=== PATIENT | male | born 1980 | race Caucasian/White ===

== ENCOUNTER 2017-02-10 14:48 | Emergency (ER) | payer BC ==
[2017-02-10 14:55] VITALS: BP 137/96
--- NOTE | 2017-02-10 15:25 | UC ---
Abdominal Pain Male HPI - HPI Summary HPI Summary: c/o worsen abd pain over the past three days/ chills and subjective fever - History of Current Complaint Chief Complaint: UCGeneralIllness Stated Complaint: DIZZY,NAUSEOUS Time Seen by Provider: 02/10/17 15:11 Hx Obtained From: Patient Onset/Duration: Sudden Onset, Lasting Days - 3 Timing: Constant Severity Initially: Mild Severity Currently: Moderate Pain Intensity: 6 Pain Scale Used: 0-10 Numeric Location: Diffuse, Discrete At: RLQ Radiates: No Character: Aching Aggravating Factor(s):: Food Alleviating Factor(s): Nothing Associated Signs And Symptoms: Positive: Decreased Appetite, Nausea - Allergies/Home Medications Allergies/Adverse Reactions: Allergies Allergy/AdvReac Type Severity Reaction Status Date / Time No Known Allergies Allergy Verified 02/10/17 14:50 PMH/Surg Hx/FS Hx/Imm Hx Previously Healthy: No Respiratory History: Asthma GI/ History: Gastroesophageal Reflux - Surgical History Surgical History: Yes Surgery Procedure, Year, and Place: Left eye 1986 - Family History Known Family History: Positive: None Family History: Mother had ovarian CA, Degenerative Knee - Social History Occupation: Employed Full-time Lives: With Family Alcohol Use: Occasionally Substance Use Type: Marijuana Substance Use Comment - Amount & Last Used: marijuana Smoking Status (MU): Never Smoked Tobacco - Immunization History Most Recent Influenza Vaccination: Feb 2016 Most Recent Tetanus Shot: up to date Review of Systems Constitutional: Chills, Fatigue Skin: Negative Eyes: Negative ENT: Negative Respiratory: Negative Cardiovascular: Negative Gastrointestinal: Abdominal Pain, Nausea Genitourinary: Negative Motor: Negative Neurovascular: Negative Musculoskeletal: Negative Neurological: Negative Psychological: Negative Is Patient Immunocompromised?: No All Other Systems Reviewed And Are Negative: Yes Physical Exam Triage Information Reviewed: Yes Appearance: Well-Nourished, Ill-Appearing, Pain Distress Vital Signs: Initial Vital Signs Temp 97.8 F 02/10/17 14:52 Pulse 75 02/10/17 14:52 Resp 18 02/10/17 14:52 BP 137/96 02/10/17 14:52 Pulse Ox 99 02/10/17 14:52 Vital Signs Reviewed: Yes Eye Exam: Normal Eyes: Positive: Conjunctiva Clear ENT Exam: Normal ENT: Positive: Normal ENT inspection, Hearing grossly normal, TMs normal. Negative: Nasal congestion, Nasal drainage, Trismus, Muffled/hoarse voice Dental Exam: Normal Neck exam: Normal Neck: Positive: Supple, Nontender Respiratory Exam: Normal Respiratory: Positive: Chest non-tender, Lungs clear, Normal breath sounds, No respiratory distress, No accessory muscle use Cardiovascular Exam: Normal Cardiovascular: Positive: RRR, No Murmur, Pulses Normal, Brisk Capillary Refill Abdominal Exam: Normal Abdomen Description: Positive: No Organomegaly, Soft Bowel Sounds: Positive: Present Musculoskeletal Exam: Normal Musculoskeletal: Positive: Strength Intact, ROM Intact, No Edema Neurological Exam: Normal Neurological: Positive: Alert, Muscle Tone Normal Psychological Exam: Normal Skin Exam: Normal Abd Pain Male Course/Dx - Course Course Of Treatment: to ed for further evaluation, NPO - Differential Dx/Clinical Impression Differential Diagnosis/HQI/PQRI: Appendicitis, Bowel Obstruction, Gall Bladder Disease Provider Diagnoses: Acute abdomen pain Discharge - Discharge Plan Condition: Stable Disposition: OTHER Discharge Disposition Comment: to ed for further evaluation Patient Education Materials: Acute Abdominal Pain (ED) [facility], [[facility]] - Additional Instructions: We are recommending that you go directly to the emergency department for further evaluation of your abdomen pain Nothing to eat or drink until you are evaluated by the provider in the emergency department
[2017-02-10] MEDS ORDERED: Ondansetron ODT TAB* 4 MG PO ONE (15:34)
== END 2017-02-10 16:14 ==
LOC: UCEAST 14:48
DX: R10.31 Right lower quadrant pain (principal); R11.0 Nausea; R42 Dizziness and giddiness; R50.9 Fever, unspecified; R53.83 Other fatigue; J45.909 Unspecified asthma, uncomplicated; K21.9 Gastro-esophageal reflux disease without esophagitis; F12.90 Cannabis use, unspecified, uncomplicated
CPT/HCPCS: 99211; A9270-GY; G0463

== ENCOUNTER 2017-02-10 16:35 | Emergency (ER) | payer BC ==
[2017-02-10] MEDS ORDERED: NS 0.9% 1000 ML* 1,000 ML IV ONE (17:53)
[2017-02-10] MEDS ORDERED: Morphine INJ* 4 MG/ML 1 ML CARPUJECT IV ONE (17:53)
[2017-02-10] MEDS ORDERED: Ondansetron INJ* 2 MG/ML VIAL IV ONE (17:53)
[2017-02-10 18:14] LABS: Hematocrit 49 % (42-52); Hemoglobin 16.7 g/dl (14.0-18.0); Mean Corpuscular HGB Conc 34 g/dl (31-36); Mean Corpuscular Hemoglobin 29 pg (27-31); Mean Corpuscular Volume 85 fL (80-94); Mean Platelet Volume 7 um3 (7.4-10.4); Red Blood Count 5.79 10^6/ul (4.0-5.4); Red Cell Distribution Width 13 % (10.5-15); White Blood Count 8.4 10^3/ul (3.5-10.8)
[2017-02-10 18:30] LABS: Albumin 4.5 g/dL (3.2-5.2); BUN/Creatinine Ratio 13.4 (8-20); C Reactive Protein 3.62 mg/L (< 5.00); Calcium 9.7 mg/dL (8.6-10.3); EGFR African American 113.9 (>60); EGFR Non-African American 88.6 (>60); Globulin 2.8 g/dL (2-4); Total Bilirubin 0.7 mg/dL (0.2-1.0); Total Protein 7.3 g/dL (6.4-8.9)
[2017-02-10] MEDS ORDERED: Iohexol 300* (CONTRAST) 10 ML SDV IV ONE (18:58)
[2017-02-10] MEDS ORDERED: Metoclopramide IV* 5 MG/ML 2 ML VIAL IV ONE (19:19)
--- NOTE | 2017-02-10 20:30 | RAD ---
INDICATION: RIGHT lower quadrant pain. COMPARISON: No relevant prior exams available on the [facility] for comparison. TECHNIQUE: Multidetector CT images were obtained from the lung bases to the ischial tuberosities with 135 mL Omnipaque 300 IV and oral contrast. Multiplanar reformation. REPORT: Unremarkable visualized inferior thorax. Unremarkable liver, gallbladder, pancreas, spleen. Negative for CT abnormality of the upper GI, small bowel, infra cecal appendix, colon. Negative for ascites, free air, or significant hernias. Normal adrenal glands. Unremarkable kidneys with symmetric nephrograms and pyelograms. Unremarkable nondilated ureters and largely decompressed urinary bladder limiting assessment. Unremarkable seminal vesicles and prostate. Negative for lymphadenopathy. Normal diameter abdominal aorta and iliac arteries. Physiologic distention of the IVC. Negative for suspicious osseous lesions. IMPRESSION: Normal appendix documented. No abdominal pelvic pathologic process evident to correspond with RIGHT lower quadrant pain.
[2017-02-10] MEDS ORDERED: Meclizine TAB* 12.5 MG PO ONE ×2 (20:33→21:09)
[2017-02-10] MEDS ORDERED: Ondansetron ODT TAB* 4 MG PO ONE (21:08)
--- NOTE | 2017-02-10 21:11 | ED ---
GI/ HPI - HPI Summary HPI Summary: 36M presents with dizziness, nausea and abdominal pain for 3 days. He states it is a feeling of vertigo that started with. It is worst when he turns his head from side to side and positional changes. He states has been feeling hot off and on again. Denies any sinus congestion or ear pain or fullness. no tinnitis. states did not have abdominal pain till pushed in RLQ. admits to nausea but no vomiting. denies any diarrhea or constipation. decrease in appetite. has history of vertigo but never last this long. denies any chest pain or SOB. no family history of strokes. - History of Current Complaint Chief Complaint: EDAbdPain Time Seen by Provider: 02/10/17 19:06 Stated Complaint: LOWER RIGHT ABD PAIN, Pain Intensity: 0 - Allergy/Home Medications Allergies/Adverse Reactions: Allergies Allergy/AdvReac Type Severity Reaction Status Date / Time No Known Allergies Allergy Verified 02/10/17 14:50 PMH/Surg Hx/FS Hx/Imm Hx Endocrine/Hematology History: Denies: Hx Diabetes Cardiovascular History: Denies: Hx Hypertension Respiratory History: Reports: Hx Asthma History: Denies: Hx Renal Disease - Surgical History Surgery Procedure, Year, and Place: Left eye 1987 Infectious Disease History: No Infectious Disease History: Denies: Hx Clostridium Difficile, Hx Hepatitis, Hx Human Immunodeficiency Virus (HIV), Hx of Known/Suspected MRSA, Hx Shingles, Hx Tuberculosis, Hx Known/ Suspected VRSA, History Other Infectious Disease, Traveled Outside the in Last 30 Days - Family History Family History: Mother had ovarian CA, Degenerative Knee - Social History Alcohol Use: Occasionally Substance Use Type: Reports: Marijuana Substance Use Comment - Amount & Last Used: marijuana Smoking Status (MU): Never Smoked Tobacco Review of Systems Negative: Fever Negative: Chest Pain Negative: Shortness Of Breath Positive: Abdominal Pain, Nausea Neurological: Other - vertigo All Other Systems Reviewed And Are Negative: Yes Physical Exam Triage Information Reviewed: Yes Vital Signs On Initial Exam: Initial Vitals Temp Pulse Resp BP Pulse Ox 97.8 F 50 18 136/84 98 02/10/17 16:38 02/10/17 16:38 02/10/17 16:38 02/10/17 16:38 02/10/17 16:38 Vital Signs Reviewed: Yes Appearance: Positive: Well-Appearing Skin: Positive: Warm, Dry Head/Face: Positive: Normal Head/Face Inspection Eyes: Positive: Normal, EOMI, MAX, Conjunctiva Clear ENT: Positive: Normal ENT inspection, Pharynx normal, TMs normal Respiratory/Lung Sounds: Positive: Clear to Auscultation, Breath Sounds Present Cardiovascular: Positive: Normal, RRR Abdomen Description: Positive: Soft, Other: - mild tenderness RLQ, neg rovsings Bowel Sounds: Positive: Present Neurological: Positive: Sensory/Motor Intact, Alert, Oriented to Person Place, Time, CN Intact II-III, Heel to Toe. Negative: [place]-Peoples [place] Test - [place] Coma Scale Best Eye Response: 4 - Spontaneous Best Motor Response: 5 - Purposeful Movement Coma Scale Total: 15 Diagnostics - Vital Signs Vital Signs Temp Pulse Resp BP Pulse Ox 02/10/17 18:15 97.2 F 57 20 133/97 96 02/10/17 18:12 20 02/10/17 16:38 97.8 F 50 18 136/84 98 - Laboratory Lab Results: Lab Results 02/10/17 02/10/17 02/10/17 Range/Units 18:00 18:00 18:00 WBC 8.4 (3.5-10.8) 10^3/ul RBC 5.79 H (4.0-5.4) 10^6/ul Hgb 16.7 (14.0-18.0) g/dl Hct 49 (42-52) % MCV 85 (80-94) fL MCH 29 (27-31) pg MCHC 34 (31-36) g/dl RDW 13 (10.5-15) % Plt Count 245 (150-450) 10^3/ul MPV 7 L (7.4-10.4) um3 Neut % (Auto) 66.7 (38-83) % Lymph % (Auto) 24.7 L (25-47) % [place] % (Auto) 6.8 (1-9) % Eos % (Auto) 0.8 (0-6) % Baso % (Auto) 1.0 (0-2) % Absolute Neuts (auto) 5.6 (1.5-7.7) 10^3/ul Absolute Lymphs (auto) 2.1 (1.0-4.8) 10^3/ul Absolute Monos (auto) 0.6 (0-0.8) 10^3/ul Absolute Eos (auto) 0.1 (0-0.6) 10^3/ul Absolute Basos (auto) 0.1 (0-0.2) 10^3/ul Absolute Nucleated RBC 0 10^3/ul Nucleated RBC % 0 Sodium 137 (133-145) mmol/L Potassium 4.0 (3.5-5.0) mmol/L Chloride 103 (101-111) mmol/L Carbon Dioxide 27 (22-32) mmol/L Anion Gap 7 (2-11) mmol/L BUN 13 (6-24) mg/dL Creatinine 0.97 (0.67-1.17) mg/dL Est GFR ( Amer) 113.9 (>60) Est GFR (Non-Af Amer) 88.6 (>60) BUN/Creatinine Ratio 13.4 (8-20) Glucose 92 (70-100) mg/dL Lactic Acid 1.0 (0.5-2.0) mmol/L Calcium 9.7 (8.6-10.3) mg/dL Total Bilirubin 0.70 (0.2-1.0) mg/dL AST 21 (13-39) U/L ALT 40 (7-52) U/L Alkaline Phosphatase 66 (34-104) U/L Total Creatine Kinase 109 (10-223) U/L C-Reactive Protein 3.62 (< 5.00) mg/L Total Protein 7.3 (6.4-8.9) g/dL Albumin 4.5 (3.2-5.2) g/dL Globulin 2.8 (2-4) g/dL Albumin/Globulin Ratio 1.6 (1-3) Lipase 21 (11.0-82.0) U/L Result Diagrams: 02/10/17 18:00 02/10/17 18:00 Lab Statement: Any lab studies that have been ordered have been reviewed, and results considered in the medical decision making process. GIGU Course/Dx - Course Course Of Treatment: 36M presents with dizziness, nausea and abdominal pain for 3 days. He states it is a feeling of vertigo that started with. It is worst when he turns his head from side to side and positional changes. He states has been feeling hot off and on again. Denies any sinus congestion or ear pain or fullness. no tinnitis. states did not have abdominal pain till pushed in RLQ. admits to nausea but no vomiting. denies any diarrhea or constipation. decrease in appetite. has history of vertigo but never last this long. on exam normal neuro exam. has some nystagmus with EOM. neg bridger-hallpike. labs normal wbc, crp. CT abdomen ordered as urgent care felt had potential for appendicits with RLQ. CT normal. treated with antivert and patient vertigo better. patient understands and agrees with plan. - Diagnoses Differential Diagnoses - Male: Appendicitis, Dehydration, Other - vertigo Provider Diagnoses: Dizziness, Abdominal pain Discharge - Discharge Plan Condition: Good Disposition: HOME Prescriptions: Meclizine TAB* [Antivert 12.5 TAB*] 25 mg PO TID #18 tab Ondansetron ODT TAB* [Zofran 4 MG Odt TAB*] 4 mg PO Q6H PRN #12 tab.odt PRN Reason: Nausea Patient Education Materials: Vertigo (ED) [facility]errals: [facility], [Primary Care Provider] - [facility] [Outside] Additional Instructions: Take meclizine up to 3 tablets a day for vertigo Take zofran every 6 hours for nausea Drink plenty of fluids Follow up with primary within 5 days Return to ED if develop any new or worsening symptoms
[2017-02-10 22:00] VITALS: BP 129/76
== END 2017-02-10 21:58 | disposition home or self-care (01) ==
LOC: ED 16:35
DX: R42 Dizziness and giddiness (principal); R10.31 Right lower quadrant pain
CPT/HCPCS: 36415; 74177; 80053; 82550; 83605; 83690; 85025; 86140; 99283; A9270-GY; J2270; J2405; J2765; Q9967

== ENCOUNTER 2017-07-21 08:49 | Emergency (ER) | payer BC ==
[2017-07-21 09:12] VITALS: BP 134/84
--- NOTE | 2017-07-21 10:23 | UC ---
FLU HPI - HPI Summary HPI Summary: 3 DAYS OF SUBJECTIVE FEVER, CHILLS, FATIGUE. FEELS WEAK AND TIRED AND VERY ACHY. NO SIGNIFICANT CONGESTION. MILD COUGH. - History of Current Complaint Chief Complaint: UCRespiratory Stated Complaint: TIREDNESS, CHILLS Time Seen by Provider: 07/21/17 09:30 Hx Obtained From: Patient Onset/Duration: Gradual Onset, Lasting Days, Still Present Severity Currently: Moderate Severity Initially: Moderate Pain Intensity: 1 Pain Scale Used: 0-10 Numeric Associated Signs & Symptoms: Positive: Fever, Myalgia, Cough - Allergy/Home Medications Allergies/Adverse Reactions: Allergies Allergy/AdvReac Type Severity Reaction Status Date / Time No Known Allergies Allergy Verified 07/21/17 09:13 PMH/Surg Hx/FS Hx/Imm Hx Respiratory History: Asthma - Surgical History Surgical History: Yes Surgery Procedure, Year, and Place: Left eye 1986 - Family History Known Family History: Negative: Hypertension Family History: Mother had ovarian CA, Degenerative Knee - Social History Alcohol Use: Weekly Substance Use Type: Marijuana Substance Use Comment - Amount & Last Used: marijuana Smoking Status (MU): Former Smoker When Did the Patient Quit Smoking/Using Tobacco: 2 years - Immunization History Most Recent Influenza Vaccination: Feb 2016 Most Recent Tetanus Shot: up to date Review of Systems Constitutional: Fever, Chills, Fatigue ENT: Negative Respiratory: Cough Cardiovascular: Negative Gastrointestinal: Negative Motor: Weakness Musculoskeletal: Myalgia All Other Systems Reviewed And Are Negative: Yes Physical Exam Triage Information Reviewed: Yes Appearance: Well-Appearing, No Pain Distress, Well-Nourished Vital Signs: Initial Vital Signs Temp 98.1 F 07/21/17 09:06 Pulse 59 07/21/17 09:06 Resp 16 07/21/17 09:06 BP 134/84 07/21/17 09:06 Pulse Ox 97 07/21/17 09:06 Vital Signs Reviewed: Yes Eyes: Positive: Conjunctiva Clear ENT: Positive: Hearing grossly normal, Pharynx normal, TMs normal Neck: Positive: Supple, Nontender, No Lymphadenopathy Respiratory Exam: Normal Cardiovascular Exam: Normal Abdomen Description: Positive: Soft Musculoskeletal: Positive: No Edema Neurological: Positive: Alert Psychological: Positive: Age Appropriate Behavior Skin: Negative: rashes Diagnostics - Laboratory Diagnostic Studies Completed/Ordered: FLU NEG Flu Course/Dx - Differential Dx/Diagnosis Provider Diagnoses: ACUTE VIRAL SYNDROME Discharge - Discharge Plan Condition: Stable Disposition: HOME Patient Education Materials: Viral Syndrome (ED) Forms: *Work Release Referrals: No Primary Care Phys,[facility] [Primary Care Provider] - Additional Instructions: FLU SWAB NEGATIVE. YOUR SYMPTOMS ARE LIKELY VIRALLY MEDIATED AND SHOULD RESOLVE ON THEIR OWN WITH TIME. REST, HYDRATE, OTC MEDS NEEDED. SEEK FOLLOW-UP IF YOU ARE NOT IMPROVING OVER THE NEXT 1-2 WEEKS. VIRAL SYNDROME: The physician has diagnosed a viral infection. Viruses not only cause "colds," but can cause many different symptoms including generalized aching, fever, headache, cough, diarrhea, nausea, vomiting, and fatigue. The treatment, for the most part, is simply relief of symptoms. This means that antibiotics are usually not given. Rest, fluids, pain medications and, occasionally, medication for the specific symptoms that are most bothersome will be prescribed. Go to the ED if you develop any new or unusual symptoms such as severe headache, stiff neck, high fever, chest pain, productive cough, or shortness of breath. You should be rechecked if you don't see marked improvement within 10 to 14 days. CALL THE NUMBER BELOW FOR ASSISTANCE IN ESTABLISHING WITH A PCP An additional resource available to assist in finding the appropriate physician for your health care needs is the [facility] ([facility]). You may contact them by calling [phone].
== END 2017-07-21 10:30 | disposition home or self-care (01) ==
LOC: UCEAST 08:49
DX: B34.9 Viral infection, unspecified (principal); Z87.891 Personal history of nicotine dependence
CPT/HCPCS: 87502; 99211; G0463

== ENCOUNTER 2018-02-06 09:05 | Emergency (ER) | payer BC ==
--- NOTE | 2018-02-06 09:57 | RAD ---
INDICATION: Chest pain COMPARISON: Most recent comparison chest x-rays dated July 06, 2016 TECHNIQUE: PA and lateral views of the chest were obtained. FINDINGS: The heart and mediastinum are normal in size and contour. The lungs are grossly clear. There is no evidence of large pleural effusion. Visualized bones are normal for the patient's age. There is no radiographic evidence of free air beneath the diaphragm IMPRESSION: No radiographic evidence of acute cardiopulmonary disease.
[2018-02-06] MEDS ORDERED: Al Hydrox/Mg Hydrox/Simet LIQ* 30 ML UDC PO ONE (10:05)
[2018-02-06 10:25] LABS: ABS Basophils 0.1 10^3/ul (0-0.2); ABS Eosinophils 0.1 10^3/ul (0-0.6); ABS Lymphocytes 1.4 10^3/ul (1.0-4.8); ABS Monocytes 0.4 10^3/ul (0-0.8); ABS Neutrophils 2.7 10^3/ul (1.5-7.7); ABS Nucleated RBC 0 10^3/ul; Eosinophil % 1.3 % (0-6); Hematocrit 49 % (42-52); Hemoglobin 16.4 g/dl (14.0-18.0); Lymphocyte % 30.7 % (25-47); Mean Corpuscular HGB Conc 34 g/dl (31-36); Mean Corpuscular Hemoglobin 28 pg (27-31); Mean Corpuscular Volume 84 fL (80-94); Mean Platelet Volume 7.5 um3 (7.4-10.4); Nucleated Red Blood Cells % 0.1; Platelet Count 226 10^3/ul (150-450); Red Blood Count 5.84 10^6/ul (4.00-5.40); Red Cell Distribution Width 14 % (10.5-15); White Blood Count 4.7 10^3/ul (3.5-10.8)
[2018-02-06 10:29] LABS: INR 0.92 (0.77-1.02)
[2018-02-06 10:42] LABS: EGFR Non-African American 94.8 (>60)
[2018-02-06 10:52] VITALS: BP 106/61
--- NOTE | 2018-02-07 06:30 | ED ---
HPI Chest Pain - HPI Summary HPI Summary: Patient is a 37-year-old male presenting to the ED with epigastric tenderness since this morning which is radiating bilaterally to the chest guy. Denies any cardiac history. Denies any shortness of breath. History of GERD, however states this usually stays in the epigastric area without radiation. He is also endorsing pain shooting through to the back. On arrival, he states he is much improved since the acute sudden onset of this symptom this morning. He denies any fever, sweats, chills. He states at this time he is feeling at his baseline. He did not eat anything out of the ordinary. He also had Tums this morning without good relief. Denies any medications or allergies. He denies abdominal pain, nausea, vomiting. at bedside. - History of Current Complaint Chief Complaint: EDChestPainROMI Time Seen by Provider: 02/06/18 09:19 Hx Obtained From: Patient Onset/Duration: Started Hours Ago Timing: Constant Initial Severity: Moderate Current Severity: Moderate Pain Intensity: 0 Pain Scale Used: 0-10 Numeric Chest Pain Location: Mid Sternal Chest Pain Radiates: Yes Chest Pain Radiates To:: Back Character: Burning, Dull/Aching Aggravating Factor(s): Nothing Alleviating Factor(s): Nothing Associated Signs and Symptoms: Positive: Negative. Negative: Chest Pain, Vision Changes, Anxiety, Recent Stress, Wheezing, Nasal Congestion - Risk Factors Pulmonary Embolism Risk Factors: Negative TAD Risk Factors: Negative - Allergy/Home Medications Allergies/Adverse Reactions: Allergies Allergy/AdvReac Type Severity Reaction Status Date / Time Adhesive Tape Allergy Rash Verified 02/06/18 09:26 PMH/Surg Hx/FS Hx/Imm Hx Previously Healthy: Yes Endocrine/Hematology History: Denies: Hx Diabetes Cardiovascular History: Denies: Hx Hypertension Respiratory History: Reports: Hx Asthma History: Denies: Hx Renal Disease - Surgical History Surgery Procedure, Year, and Place: Left eye 1986 - Immunization History Hx Pertussis Vaccination: No Immunizations Up to Date: Yes Infectious Disease History: No Infectious Disease History: Denies: Hx Clostridium Difficile, Hx Hepatitis, Hx Human Immunodeficiency Virus (HIV), Hx of Known/Suspected MRSA, Hx Shingles, Hx Tuberculosis, Hx Known/ Suspected VRSA, History Other Infectious Disease, Traveled Outside the [place] in Last 30 Days - Family History Known Family History: Negative: Hypertension Family History: Mother had ovarian CA, Degenerative Knee - Social History Occupation: Employed Full-time Lives: With Family Alcohol Use: Weekly Alcohol Amount: 2-3 drinks Hx Substance Use: Yes Substance Use Type: Reports: Marijuana Substance Use Comment - Amount & Last Used: marijuana Hx Tobacco Use: No Smoking Status (MU): Former Smoker Review of Systems Constitutional: Negative Negative: Fever, Chills, Fatigue, Skin Diaphoresis Positive: Chest Pain. Negative: Palpitations Negative: Shortness Of Breath, Cough Negative: Abdominal Pain, Vomiting Genitourinary: Negative Positive: no symptoms reported, see HPI Negative: Arthralgia, Myalgia Skin: Negative Neurological: Negative All Other Systems Reviewed And Are Negative: Yes - he Physical Exam Triage Information Reviewed: Yes Vital Signs On Initial Exam: Initial Vitals Temp Pulse Resp BP Pulse Ox 97.8 F 55 18 132/83 97 02/06/18 09:10 02/06/18 09:10 02/06/18 09:10 02/06/18 09:10 02/06/18 09:10 Vital Signs Reviewed: Yes Appearance: Positive: Well-Appearing, Well-Nourished Skin: Positive: Warm, Skin Color Reflects Adequate Perfusion Head/Face: Positive: Normal Head/Face Inspection Eyes: Positive: EOMI, MAX, Conjunctiva Clear Neck: Positive: Supple, No Lymphadenopathy Respiratory/Lung Sounds: Positive: Clear to Auscultation, Breath Sounds Present Cardiovascular: Positive: RRR, Pulses are Symmetrical in both Upper and Lower Extremities Musculoskeletal: Positive: Normal, Strength/ROM Intact Neurological: Positive: Speech Normal Psychiatric: Positive: Normal, Affect/Mood Appropriate AVPU Assessment: Alert Diagnostics - Vital Signs Vital Signs Temp Pulse Resp BP Pulse Ox 02/06/18 11:06 97.8 F 46 18 106/61 95 02/06/18 10:45 47 13 106/61 95 02/06/18 10:15 50 15 128/74 95 02/06/18 10:00 50 9 98 02/06/18 09:46 49 13 118/70 95 02/06/18 09:38 98 02/06/18 09:17 61 99 02/06/18 09:15 71 128/92 99 02/06/18 09:10 97.8 F 55 18 132/83 97 - Laboratory Lab Results: Lab Results 02/06/18 02/06/18 02/06/18 Range/Units 10:05 10:05 10:05 WBC 4.7 (3.5-10.8) 10^3/ul RBC 5.84 H (4.00-5.40) 10^6/ul Hgb 16.4 (14.0-18.0) g/dl Hct 49 (42-52) % MCV 84 (80-94) fL MCH 28 (27-31) pg MCHC 34 (31-36) g/dl RDW 14 (10.5-15) % Plt Count 226 (150-450) 10^3/ul MPV 7.5 (7.4-10.4) um3 Neut % (Auto) 57.4 (38-83) % Lymph % (Auto) 30.7 (25-47) % Castro % (Auto) 8.0 H (0-7) % Eos % (Auto) 1.3 (0-6) % Baso % (Auto) 2.6 H (0-2) % Absolute Neuts (auto) 2.7 (1.5-7.7) 10^3/ul Absolute Lymphs (auto) 1.4 (1.0-4.8) 10^3/ul Absolute Monos (auto) 0.4 (0-0.8) 10^3/ul Absolute Eos (auto) 0.1 (0-0.6) 10^3/ul Absolute Basos (auto) 0.1 (0-0.2) 10^3/ul Absolute Nucleated RBC 0 10^3/ul Nucleated RBC % 0.1 INR (Anticoag Therapy) (0.77-1.02) Sodium 138 (135-145) mmol/L Potassium 4.1 (3.5-5.0) mmol/L Chloride 107 (101-111) mmol/L Carbon Dioxide 24 (22-32) mmol/L Anion Gap 7 (2-11) mmol/L BUN 14 (6-24) mg/dL Creatinine 0.91 (0.67-1.17) mg/dL Est GFR ( Amer) 114.7 (>60) Est GFR (Non-Af Amer) 94.8 (>60) BUN/Creatinine Ratio 15.4 (8-20) Glucose 104 H (70-100) mg/dL Lactic Acid 1.2 (0.5-2.0) mmol/L Calcium 9.5 (8.6-10.3) mg/dL Magnesium 2.0 (1.9-2.7) mg/dL Total Bilirubin 0.60 (0.2-1.0) mg/dL AST 20 (13-39) U/L ALT 36 (7-52) U/L Alkaline Phosphatase 69 (34-104) U/L Troponin I 0.00 (<0.04) ng/mL B-Natriuretic Peptide ( - 100) pg/mL Total Protein 6.8 (6.4-8.9) g/dL Albumin 4.4 (3.2-5.2) g/dL Globulin 2.4 (2-4) g/dL Albumin/Globulin Ratio 1.8 (1-3) 02/06/18 02/06/18 Range/Units 10:05 10:05 WBC (3.5-10.8) 10^3/ul RBC (4.00-5.40) 10^6/ul Hgb (14.0-18.0) g/dl Hct (42-52) % MCV (80-94) fL MCH (27-31) pg MCHC (31-36) g/dl RDW (10.5-15) % Plt Count (150-450) 10^3/ul MPV (7.4-10.4) um3 Neut % (Auto) (38-83) % Lymph % (Auto) (25-47) % Castro % (Auto) (0-7) % Eos % (Auto) (0-6) % Baso % (Auto) (0-2) % Absolute Neuts (auto) (1.5-7.7) 10^3/ul Absolute Lymphs (auto) (1.0-4.8) 10^3/ul Absolute Monos (auto) (0-0.8) 10^3/ul Absolute Eos (auto) (0-0.6) 10^3/ul Absolute Basos (auto) (0-0.2) 10^3/ul Absolute Nucleated RBC 10^3/ul Nucleated RBC % INR (Anticoag Therapy) 0.92 (0.77-1.02) Sodium (135-145) mmol/L Potassium (3.5-5.0) mmol/L Chloride (101-111) mmol/L Carbon Dioxide (22-32) mmol/L Anion Gap (2-11) mmol/L BUN (6-24) mg/dL Creatinine (0.67-1.17) mg/dL Est GFR ( Amer) (>60) Est GFR (Non-Af Amer) (>60) BUN/Creatinine Ratio (8-20) Glucose (70-100) mg/dL Lactic Acid (0.5-2.0) mmol/L Calcium (8.6-10.3) mg/dL Magnesium (1.9-2.7) mg/dL Total Bilirubin (0.2-1.0) mg/dL AST (13-39) U/L ALT (7-52) U/L Alkaline Phosphatase (34-104) U/L Troponin I (<0.04) ng/mL B-Natriuretic Peptide 24 ( - 100) pg/mL Total Protein (6.4-8.9) g/dL Albumin (3.2-5.2) g/dL Globulin (2-4) g/dL Albumin/Globulin Ratio (1-3) Result Diagrams: 02/06/18 10:05 02/06/18 10:05 Lab Statement: Any lab studies that have been ordered have been reviewed, and results considered in the medical decision making process. Chest Pain Course/Dx - Course Course Of Treatment: Patient is evaluated for epigastric pain radiating into the bilateral chest guy and radiating through to the back which was acute onset this morning and has since resolved [employer]. Labs obtained including troponin which is 0.00. Chest x-ray obtained and is negative. He is given Maalox with good relief. He states he was previously on Prilosec, however discontinued this several months ago. He states this feels similar to his GERD symptoms, however this was the first time the pain had radiated to the chest and back. Denies cardiac history. Denies diaphoresis. He is feeling well at this time. Patient will be discharged with epigastric pain diagnoses and is given return precautions. EKG shows NSR. - Chest Pain Differential Diagnosis/HQI/PQRI: Angina, Chest Wall - Diagnoses Provider Diagnoses: Epigastric pain Discharge - Sign-Out/Discharge Documenting (check all that apply): Patient Departure - Discharge Plan Condition: Stable Disposition: HOME Referrals: No Primary Care Phys,NOPCP [Primary Care Provider] - - Billing Disposition and Condition Condition: STABLE Disposition: Home
== END 2018-02-06 11:06 | disposition home or self-care (01) ==
LOC: ED 09:05
DX: R10.13 Epigastric pain (principal); R07.89 Other chest pain; Z87.19 Personal history of other diseases of the digestive system; Z87.891 Personal history of nicotine dependence
CPT/HCPCS: 36415; 71046; 80053; 83605; 83735; 83880; 84484; 85025; 85610; 93005; 99283; A9270-GY